=== PATIENT | male | born 1965 | race Caucasian/White ===

== ENCOUNTER 2021-08-13 10:28 | Emergency (ER) | payer SELFPAY | END 2021-08-13 12:10 | disposition home or self-care (01) | LOC: DL.ED 10:28 | DX: R03.0 Elevated blood-pressure reading, without diagnosis of hypertension (principal); Z76.0 Encounter for issue of repeat prescription; Z79.01 Long term (current) use of anticoagulants | CPT/HCPCS: 36415; 85610; 99283 ==

== ENCOUNTER 2024-09-21 13:05 | Emergency (ER) | payer SELFPAY | END 2024-09-21 14:00 | disposition home or self-care (01) | LOC: DL.ED 13:05 | DX: M25.532 Pain in left wrist (principal); Z79.01 Long term (current) use of anticoagulants | CPT/HCPCS: 73110-LT; 99282; 99283 ==